=== PATIENT | female | born 1960 | race Caucasian/White ===

== ENCOUNTER → 2019-04-21 | Outpatient (CLI) | payer OTHER ==
[~2019-04-21] MED LIST: Z.0.AMLODIPINE BESYL PO; Z.0.ASPIRIN CHEW81 M; Z.0.LEVOTHYROXINE50 PO; Z.0.LIPITOR10 MG PO
--- NOTE | 2019-04-24 11:11 | Diagnostic Imaging Report ---
#[id number] - [id number] #BILATERAL DIGITAL SCREENING MAMMOGRAM WITH CAD: 04/21/2019 CLINICAL: Routine screening. Comparison is made to exams dated: 02/05/2017 mammogram, 01/01/2015 mammogram and 02/01/2016 mammogram - [facility] [place]. Current study contains 4 films. There are scattered fibroglandular elements in both breasts. Current study was also evaluated with a Computer Aided Detection (CAD) system. Benign appearing calcifications are noted bilaterally. There are benign nodes in the left breast. No significant masses, calcifications, or other findings are seen in either breast. IMPRESSION: BENIGN There is no mammographic evidence of malignancy. A 1 year screening mammogram is recommended. The patient will be notified by letter of the results. LOGAN ray/penrad:04/22/2019 15:15:27 [employer]: Carla BROWNING(R)(Octavio), [facility] letter sent: Normal Exam Mammogram BI-RADS: 2 Benign
== END ==
LOC: MAMMO 13:39
PROVIDERS: ATTEND Internal Medicine
DX: Z12.31 Encounter for screening mammogram for malignant neoplasm of breast (principal)
CPT/HCPCS: 77067